=== PATIENT | female | born 1995 | race African-American/Black ===

== ENCOUNTER 2017-01-05 15:40 | Emergency (ER) | payer MEDICAID ==
[~2017-01-05] VITALS: Ht 167.6 cm; Wt 60.9 kg
[~2017-01-05 15:40] MED LIST: IBUP-1222 PO; OXYC-302 PO; PNV1TABL47 PO; PREN1TAB56 PO
[2017-01-05 16:45] LABS: HEMOGLOBIN 13.3 g/dL (11.7-16.4); WHITE BLOOD COUNT 4.8 x10^3/uL (3.4-10)
[2017-01-05 17:33] VITALS: BP 111/68
== END 2017-01-05 17:34 | disposition home or self-care (01) ==
LOC: ED 16:55
DX: N93.8 Other specified abnormal uterine and vaginal bleeding (principal); N92.4 Excessive bleeding in the premenopausal period; N92.0 Excessive and frequent menstruation with regular cycle
CPT/HCPCS: 36415; 76830; 84703; 85025; 99285

== ENCOUNTER 2017-01-19 16:17 | Emergency (ER) | payer MEDICAID ==
[~2017-01-19] VITALS: Ht 167.6 cm; Wt 60.2 kg
[2017-01-19 16:25] VITALS: BP 129/96
[2017-01-19] MEDS ORDERED: CEFTRIAXONE 250 MG IM ONE (17:00)
[2017-01-19] MEDS ORDERED: AZITHROMYCIN 500 MG TABLET PO ONE (17:00)
[2017-01-19] MEDS ORDERED: CEFTRIAXONE 250 MG ONE (17:03)
[2017-01-19] MEDS ORDERED: AZITHROMYCIN 250 MG TABLET ONE (17:03)
== END 2017-01-19 17:37 | disposition home or self-care (01) ==
LOC: ED 17:10
DX: A64 Unspecified sexually transmitted disease (principal)
CPT/HCPCS: 96372; 99283; J0696

== ENCOUNTER 2017-06-24 07:47 | Emergency (ER) | payer MEDICAID ==
[~2017-06-24] VITALS: Ht 167.6 cm; Wt 60.5 kg
[2017-06-24 07:49] VITALS: BP 114/75
== END 2017-06-24 09:21 | disposition home or self-care (01) ==
LOC: ED 08:24
DX: H00.015 Hordeolum externum left lower eyelid (principal)
CPT/HCPCS: 99282

== ENCOUNTER 2018-01-14 08:04 | Emergency (ER) | payer MEDICAID ==
[~2018-01-14] VITALS: Ht 167.6 cm; Wt 64.0 kg
[2018-01-14] MEDS ORDERED: KETOROLAC 30 MG/1 ML IVPush ONE (08:30)
[2018-01-14] MEDS ORDERED: SODIUM CHLORIDE FLUSH 10ML SYR IVF ONE (08:30)
[2018-01-14] MEDS ORDERED: PROCHLORPERAZINE 5 MG/ML, 2ML IVPush ONE (08:30)
[2018-01-14] MEDS ORDERED: DIPHENHYDRAMINE 50 MG/ML, 1ML IVPush ONE (08:30)
[2018-01-14] MEDS ORDERED: SODIUM CHLORIDE 0.9% 1,000ML IVBOLUS ONE (08:30)
[2018-01-14] MEDS ORDERED: DIPHENHYDRAMINE 50 MG/ML, 1ML ONE (08:50)
[2018-01-14] MEDS ORDERED: PROCHLORPERAZINE 5 MG/ML, 2ML ONE (08:50)
[2018-01-14] MEDS ORDERED: KETOROLAC 30 MG/1 ML ONE (08:50)
[2018-01-14 08:59] LABS: ALBUMIN 3.8 g/dL (3.4-5.0); ANION GAP 6 mmol/L (5-15); BASOPHILS # (AUTO) 0.02 x10^3/uL (0-0.1); BASOPHILS % (AUTO) 1 % (0-1); CALCIUM 8.1 mg/dL (8.5-10.1); CHLORIDE 109 mmol/L (98-107); CREATININE 0.84 mg/dL (0.55-1.02); EOSINOPHILS # (AUTO) 0.03 x10^3/uL (0-0.4); EOSINOPHILS % (AUTO) 1 % (1-7); LYMPHOCYTES # (AUTO) 1.29 x10^3/uL (1-3.4); LYMPHOCYTES % (AUTO) 32 % (22-44); MD NO; MEAN CORPUSCULAR HEMOGLOBIN 29.3 pg (27.0-34.8); MEAN CORPUSCULAR VOLUME 88.7 fL (80-100); MEAN PLATELET VOLUME 8.3 fL (7.4-10.4); MONOCYTES # (AUTO) 0.32 x10^3/uL (0.2-0.8); MONOCYTES % (AUTO) 8 % (2-9); NEUTROPHILS # (AUTO) 2.38 x10^3/uL (1.8-6.8); NEUTROPHILS % (AUTO) 59 % (42-75); PLATELET COUNT 217 x10^3/uL (130-400); RED BLOOD COUNT 4.22 x10^6/uL (3.82-5.3); RED CELL DISTRIBUTION WIDTH 13.4 % (9.6-15.2)
[2018-01-14 10:05] VITALS: BP 102/58
== END 2018-01-14 10:08 | disposition home or self-care (01) ==
LOC: ED 08:47
DX: G44.209 Tension-type headache, unspecified, not intractable (principal)
CPT/HCPCS: 36415; 70450; 80048; 82040; 82375; 84703; 85025; 96374; 96375; 99285; J0780; J1200; J1885; J7030

== ENCOUNTER 2018-06-01 10:34 | Emergency (ER) | payer MEDICAID ==
[~2018-06-01] VITALS: Ht 165.1 cm; Wt 67.6 kg
[2018-06-01 10:56] VITALS: BP 113/78
[2018-06-01] MEDS ORDERED: DEXAMETHASONE 4 MG TABLET ONE (12:04)
[2018-06-01] MEDS ORDERED: DEXAMETHASONE 4 MG TABLET PO ONE (12:30)
== END 2018-06-01 12:14 | disposition home or self-care (01) ==
LOC: ED 12:08
DX: J00 Acute nasopharyngitis [common cold] (principal); J04.0 Acute laryngitis
CPT/HCPCS: 71046; 99283

== ENCOUNTER 2020-01-09 10:23 | Emergency (ER) | payer MEDICAID ==
[~2020-01-09] VITALS: Ht 167.6 cm; Wt 77.1 kg
[2020-01-09 10:30] VITALS: BP 122/83
--- NOTE | 2020-01-09 10:56 | NUR ---
PT AMBULATES WELL TO BATHROOM FOR UA. NAD NOTED AT THIS TIME. PT BACK IN BED. AWAITING ORDERS.
[2020-01-09 11:34] LABS: HCG UR SG 1.018 (1.003-1.030); MICROSCOPIC AUTO
== END 2020-01-09 12:15 | disposition home or self-care (01) ==
LOC: ED 11:19
DX: U07.1 COVID-19 (principal); N39.0 Urinary tract infection, site not specified; J02.8 Acute pharyngitis due to other specified organisms; B34.9 Viral infection, unspecified
CPT/HCPCS: 36415; 71045; 81001; 81025; 87081; 87086; 87635; 87880; 99284

== ENCOUNTER 2020-09-29 19:27 | Emergency (ER) | payer MEDICAID ==
[~2020-09-29] VITALS: Ht 167.6 cm; Wt 67.2 kg
[~2020-09-29 19:27] MED LIST changes: -OXYC-302 PO; +OXYC1TAB12 PO
[2020-09-29 19:33] VITALS: BP 123/86
--- NOTE | 2020-09-29 19:42 | NUR ---
PT PRESENTS TO THE ER BECAUSE SHE HAS BILATERAL HAND PAIN, PT STATES SHE WAS ,"DOING SOMETHING STUPID, TRYING TO GRAB SOMEONE" AND HER HAND "BROKE". PT STATES BILATERAL RING FINGERS ARE IN PAIN, PT IN TEARS CRYING FROM PAIN
[2020-09-29] MEDS ORDERED: KETOROLAC 30 MG/1 ML ONE (19:50)
[2020-09-29] MEDS ORDERED: KETOROLAC 30 MG/1 ML IM ONE (20:00)
[2020-09-29] MEDS ORDERED: LIDOCAINE-MPF 1%, 2ML ONE (20:12)
[2020-09-29] MEDS ORDERED: LIDOCAINE-MPF 1%, 5ML ONE (20:14)
[2020-09-29] MEDS ORDERED: LIDOCAINE-MPF 1%, 2ML INFIL ONE (20:30)
--- NOTE | 2020-09-29 21:08 | NUR ---
PT WAS TEARFUL ABOUT CURRENT SOCIAL SITUATION, THIS RN PROVIDED A LIST OF COUNSELING SERVICES AVAILABLE THAT PT COULD REACH OUT TO, PT STATED SHE WAS GOING TO CALL AND TRY TO MAKE AN APPOINTMENT, PT DISCHARGED WITH LIST OF RESOURCES AND MEDICATION SCRIPT
== END 2020-09-29 21:11 | disposition home or self-care (01) ==
LOC: ED 19:30
DX: S62.665A Nondisplaced fracture of distal phalanx of left ring finger, initial encounter for closed fracture (principal); S63.294A Dislocation of distal interphalangeal joint of right ring finger, initial encounter; R00.0 Tachycardia, unspecified; X58.XXXA Exposure to other specified factors, initial encounter; Y93.89 Activity, other specified; Y92.89 Other specified places as the place of occurrence of the external cause; Y99.8 Other external cause status
CPT/HCPCS: 26770; 73140; 96372; 99284; J1885; 26725